=== PATIENT | female | born 1960 | race Caucasian/White ===

== ENCOUNTER 2024-03-31 12:18 | Outpatient (CLI) | payer MEDICARE, OTHER, SELFPAY ==
[2024-04-03 14:54] LABS: Quantiferon Mitogen 7.22 IU/mL; Quantiferon Nil 0.02 IU/mL; Quantiferon Plus TB1 0.02 IU/mL; Quantiferon Plus TB2 0.01 IU/mL; Quantiferon TB Gold NEGATIVE (NEGATIVE)
== END 2024-03-31 12:19 | disposition home or self-care (01) ==
LOC: LAB 12:20
PROVIDERS: PCP Family Medicine; Visit Provider Nurse Practitioner Family
DX: Z01.89 Encounter for other specified special examinations (principal)
CPT/HCPCS: 36415; 86480

== ENCOUNTER 2024-04-30 14:03 | Outpatient (CLI) | payer MEDICARE, OTHER, SELFPAY ==
--- NOTE | 2024-04-30 14:30 | XR_ITS ---
WS: [id number] DEXA (DUAL ENERGY X-RAY ABSORPTIOMETRY) Bone mineral density was performed using a [employer] machine. HISTORY: Z13.820 - Encounter for screening for osteoporosis COMPARISON: None available. Lumbar spine BMD (L1-L4): 1.036 g/cm2 T score: -1.2 Z score: 0.1 Total hip BMD: Left: 0.761 (g/cm2). T score: -2.0 (no units) Z score: -1.0 (no units) Left forearm BMD: 0.708 g/cm2. T score: -1.9 Z score: -0.5 10 year probability of a major osteoporotic fracture is 18.8%. XR/XR DEXA axial skeleton* [id number] IMPRESSION: OSTEOPENIA based upon the WHO classification for females.
== END 2024-04-30 14:04 | disposition home or self-care (01) ==
LOC: RAD 14:08
PROVIDERS: PCP Family Medicine; Visit Provider Family Medicine
DX: Z13.820 Encounter for screening for osteoporosis (principal); M85.80 Other specified disorders of bone density and structure, unspecified site
CPT/HCPCS: 77080

== ENCOUNTER 2024-07-16 12:30 | Outpatient (CLI) | payer MEDICARE, SELFPAY | END 2024-07-16 12:31 | disposition home or self-care (01) | LOC: LAB 07-17 07:28 | PROVIDERS: PCP Family Medicine; Visit Provider Family Medicine | DX: E03.9 Hypothyroidism, unspecified (principal); Z13.820 Encounter for screening for osteoporosis; W19.XXXA Unspecified fall, initial encounter; L40.9 Psoriasis, unspecified; R07.89 Other chest pain | CPT/HCPCS: 80053; 80061; 82306; 84443; 85025 ==

== ENCOUNTER → 2024-07-30 10:17 | Outpatient (BNVA) | payer MEDICARE, OTHER, SELFPAY | PROVIDERS: PCP Family Medicine; Visit Provider Nurse Practitioner Family | DX: L30.4 Erythema intertrigo (principal); L08.89 Other specified local infections of the skin and subcutaneous tissue; L40.0 Psoriasis vulgaris; Z79.899 Other long term (current) drug therapy; L81.4 Other melanin hyperpigmentation; L57.8 Other skin changes due to chronic exposure to nonionizing radiation | CPT/HCPCS: 99213 ==

== ENCOUNTER 2024-08-19 09:20 | Outpatient (CLI) | payer MEDICARE, OTHER, SELFPAY ==
--- NOTE | 2024-08-19 09:40 | MM_ITS ---
WS: [id number] VIEWS: MLO and CC views both breasts. 3D digital tomosynthesis is also included in this exam. No priors. Findings: There are scattered areas of fibroglandular density. No mass, tumor calcification or architectural distortion. MM/MM scr BI tomosynthesis [id number] Impression: BI-RADS: 2 - Benign. FOLLOW-UP: 1 Year Follow-up This mammogram was also analyzed by the Computer [employer].
== END 2024-08-19 09:21 | disposition home or self-care (01) ==
PROVIDERS: PCP Family Medicine; Visit Provider Family Medicine
DX: Z12.31 Encounter for screening mammogram for malignant neoplasm of breast (principal); R92.323 Mammographic fibroglandular density, bilateral breasts
CPT/HCPCS: 77063; 77067; 80053; 80061; 82306; 84443; 85025

== ENCOUNTER 2024-12-01 09:10 | Outpatient (CLI) | payer MEDICARE, OTHER, SELFPAY ==
--- NOTE | 2024-12-01 09:30 | MR_ITS ---
WS: [id number] MRI LEFT SHOULDER HISTORY: M75.100 - Unspecified rotator cuff tear or rupture of uns... COMPARISON: None available. TECHNIQUE: Multiplanar sequences of the shoulder joint are submitted. Mild AC joint arthritis. Narrowing of the AC joint. Very slight downsloping of the acromion. Enthesopathy along the distal undersurface of the acromion with mild impingement upon the supraspinatus tendon. Small amount of fluid in the subacromial and subdeltoid bursa. No os acromion. Abnormal biceps tendon in the bicipital groove. There is increased fluid in the tendon sheath and a split tear within the biceps tendon. Progression of the split tear just proximal to the bicipital groove. Increased T2 signal throughout the tendon from tendinopathy. There is an osteophyte in the bicipital groove contributing to impingement upon the tendon. Mild narrowing of the glenohumeral joint. Subchondral cystic changes in the humeral head with diffuse loss of cartilage. Mild subscapularis and supraspinatus atrophy. Thinning and atrophy of the distal supraspinatus tendon with surface fraying. No full-thickness tear identified. There is an insertion s ite tear measuring about 5 mm. Subscapularis tendon is intact. No infraspinatus tendon tear. Teres minor is intact. There is a focal area of decreased signal involving the distal supraspinatus tendon at the level of the distal clavicular head. This may be a small osteophyte or calcific tendinitis. No labral tear identified. MR/MR shoulder LT wo con* [id number] IMPRESSION: 1. Mild AC joint arthropathy with osteophyte impingement upon the supraspinatu s. 2. Thinning and atrophy of the distal supraspinatus tendon with a small insert ion site tear. There is fraying along both the superior and inferior articular surfaces. 3. Mild subacromial impingement by an enthesopathy on the distal undersurface of the acromion. 4. Focal area of decreased signal abutting the distal supraspinatus tendon at the level of the distal clavicle. Small loose body versus calcific tendinitis. 5. Mild narrowing glenohumeral joint with subchondral cystic changes and diffu se loss of cartilage. 6. Abnormal biceps tendon. Split tear in the bicipital groove with a more comp leia tear just proximal to the bicipital groove along with tenosynovitis. Additi onal biceps tendinopathy.
== END 2024-12-01 09:11 | disposition home or self-care (01) ==
PROVIDERS: PCP Family Medicine; Visit Provider Family Medicine
DX: M19.012 Primary osteoarthritis, left shoulder (principal); M25.712 Osteophyte, left shoulder; M75.42 Impingement syndrome of left shoulder; M24.112 Other articular cartilage disorders, left shoulder; M75.32 Calcific tendinitis of left shoulder; M75.22 Bicipital tendinitis, left shoulder; M75.102 Unspecified rotator cuff tear or rupture of left shoulder, not specified as traumatic
CPT/HCPCS: 73221

== ENCOUNTER → 2025-01-12 07:53 | Outpatient (BNVA) | payer MEDICARE, OTHER, SELFPAY | PROVIDERS: PCP Family Medicine; Visit Provider Orthopaedic Surgery | DX: S46.212A Strain of muscle, fascia and tendon of other parts of biceps, left arm, initial encounter (principal); S43.432A Superior glenoid labrum lesion of left shoulder, initial encounter; W01.0XXA Fall on same level from slipping, tripping and stumbling without subsequent striking against object, initial encounter | CPT/HCPCS: 73030; 99204 ==

== ENCOUNTER 2025-01-14 05:53 | Day surgery (SDC) | payer MEDICARE, OTHER, SELFPAY ==
[2025-01-14] VITALS (8 sets, daily range): BP systolic 108–124; BP diastolic 52–78; PULSE 58–64; RESP 15–20; TEMP 36.4–36.5; O2SAT 96–100; BMI 27.2
--- NOTE | 2025-01-14 06:59 | W.PM.OPSUD ---
Surgery/Procedure H&P Update DATE OF PROCEDURE: January 14, 2025 DATE H&P PERFORMED: 01/12/25 H&P UPDATE INFORMATION: I have reviewed H&P completed within last 30 days, I have examined patient prior to procedure and No changes to prior documentation PREOP DIAGNOSIS: Internal derangement of left shoulder PLANNED PROCEDURE: Operation Date: 01/14/25 07:30 Proposed Procedures p LEFT Shoulder Arthroscopy(Left) - Terrell Trammell MD s LEFT Rotator Cuff Repair - Open(Left) - Terrell Trammell MD s POSSIBLE OPEN Biceps Tenodesis(Left) - Terrell Trammell MD
--- NOTE | 2025-01-14 07:09 | P.ANESASSM_ITS ---
Pre-Anesthetic Assessment Height/Weight: Height 1.7 m Weight 78.925 kg Temp Pulse Resp BP Pulse Ox O2 Del Method 97.7 F 58 L 17 116/73 100 Room Air 01/14/25 06:14 01/14/25 06:14 01/14/25 06:14 01/14/25 06:14 01/14/25 06:14 01/14/25 06:14 Preop Diagnosis: Internal derangement of left shoulder Operation Date: 01/14/25 07:30 Proposed Procedures p LEFT Shoulder Arthroscopy(Left) - Terrell Trammell MD s LEFT Rotator Cuff Repair - Open(Left) - Terrell Trammell MD s POSSIBLE OPEN Biceps Tenodesis(Left) - Terrell Trammell MD Last intake: Intake Last Liquid Date 01/13/25 Last Liquid Time 20:00 Last Solid Date 01/13/25 Last Solid Time 18:00 Social No alcohol and No tobacco Exam alert, oriented x 3, clear to auscultation bilaterally and regular rate & rhythm Airway Submandibular: within normal limits Cervical ROM: within normal limits Mallampati: Class I Dentition: false History/ROS No significant history except as noted GI Gastroesophageal Reflux Disease Neuropsych Bipolar Anesthetic Plan ASA status: 2 Anesthesia: General and Regional (specify below) (Interscalene Nv Blk) Medications/Allergies Home Medications ?Medication ?Instructions ?Recorded ?Confirmed ?Last Taken ?Type pantoprazole 20 mg tablet,delayed 20 mg PO DAILY stoma ch #90 tabs 07/16/24 01/13/25 01/12/25 Rx release (Protonix) Allergies Allergy/AdvReac Type Severity Reaction Status Date / Time amoxicillin Allergy rash Verified 01/13/25 12:09 tramadol Allergy ADR-Nausea Verified 01/13/25 12:09 codine Allergy rash Uncoded 01/13/25 12:09 Latex, Natural Rubber Allergy hives Uncoded 01/13/25 12:09 Current Medications Generic Name Dose Route Start Last Admin Trade Name Freq PRN Reason Stop Dose Admin Sodium Chloride 1,000 mls @ 30 mls/hr 01/14/25 06:00 01/14/25 07:08 Sodium Chloride 0.9% IV 01/15/25 05:59 30 mls/hr .Q24H COLIN Administration PFSH Anesthesia Social History Smoking and tobacco/nicotine status: never used tobacco/nicotine
--- NOTE | 2025-01-14 07:25 | ANES.PROC ---
Anesthesia Procedures Procedure/Date: 01/14/25 Left Side Interscalene Block Nerve Block ^: Nerve Block 1: Time Out Performed: Yes Consent: requested by attending/covering physician, from patient, risks and benefits reviewed and patient agrees to proceed Laterality: Left Nerve block location: interscalene Anesthesia monitors applied: pulse oximetry, EKG, BP cuff and oxygen Nerve block position: semi sitting Anesthetic Used: ropivicaine 0.5% and with decadron (10 mg) Amount of anesthesia used (mL): 20 Ultrasound used to: recognize landmarks, visualize and ID brachial plexus and visualize and ID interscalene groove Nerve Stimulator Used?: Yes Interscalene/Femoral BLK: 4 stimuplex 21 g needle used for position and inplane approach, visualize local anesthetic spread and no vascular puncture identified Injection: neg aspiration of heme Patient Tolerated Procedure: well and no complications Complications: none Additional Comments: Versed 2 mg for block
--- NOTE | 2025-01-14 09:08 | PM.OP ---
Operative Report Date of procedure: January 14, 2025 Surgeon: Terrell Trammell MD Procedure: Preoperative diagnosis: Internal derangement left shoulder with rotator cuff tear and biceps partial tear Postoperative diagnosis: Left shoulder torn rotator cuff, partial tear biceps tendon, degenerative labral tearing anterior and superior labrum, grade II/III chondromalacia of the glenoid, acromial impingement. Procedure: Diagnostic left shoulder arthroscopy with labral debridement, rotator cuff debridement, biceps tenodesis, chondroplasty of the glenoid. Mini open rotator cuff repair with acromioplasty Surgeon: Terrell Trammell MD Party Plan Sales Agent: PREMA Stallings's assistance was necessary for positioning patient, assistance during the procedure, wound closure, dressing placement, sling and abduction pillow placement. Anesthesia: General With preoperative scalene block EBL: Minimal Indications: Glenys is a 64-year-old white female was referred in the orthopedic clinic for evaluation of left shoulder pain problems and difficulties. She has loss of motion and strength in the shoulder. She had positive drop arm test. Positive impingement testing. Subsequent MRI demonstrated tear of the rotator cuff also tearing of the biceps tendon and possible degenerative changes within the labrum. Therefore, after failing all conservative measures she was offered a diagnostic left shoulder arthroscopy with possible mini open rotator cuff repair. All risk benefits treatment alternatives were discussed with her and she is agreeable to this at this time. Procedure: After obtaining her consent patient had preoperative skin block ministered left upper extremity. Patient was then taken to the operating room placed in the op table supine position general anesthetic administered. Once good anesthesia was achieved patient placed over the beachchair position and secured to the table and padded out appropriately. Left shoulder and arm were prepped and draped in usual fashion. After surgical timeout standard posterior portals made #11 blade. Camera cannulas placed within posterior glenohumeral joint line. Anterior working portal was also placed just inferior to the clavicle. 2 of the shoulder demonstrated fraying and degenerative tearing of the labrum all the way from about the 7 o'clock position up to 12 o'clock position. It was found that the biceps tendon was quite redundant and fraying. There is also an area of grade II/III chondromalacia of the central portion of the glenoid. Hypertrophic synovium throughout. Torn rotator cuff identified in the supraspinatus region. Mechanical shaver was then used to debride the labrum over its entire course of the degeneration. Biceps tenodesis was performed with the mechanical shaver removing the biceps from its insertion at the labrum and debriding a portion of the subs of his intra-articularly. Debridement of synovium was also done as well as of the rotator cuff. Chondroplasty of the glenoid was also done with mechanical shaver down to stable cartilage space. At this time arthroscopy is discontinued. Small mini open procedure was proceeded with. Longitudinal incision made just off the anterior lateral corner of the acromion. Sharp dissection taken down down to subcutaneous tissue electrocautery used hemostasis. Deltoid was raised off the anterior acromion with electrocautery. Grade 2 acromial hook was identified. A small microsagittal saw was then used to do an acromioplasty at this time and bone was removed with a rongeur's. Exploration of the subacromial space found a small tear within the supraspinatus tendon. Area was freshened with #15 blade. 2 juggernaut 2.9 mm suture anchors were placed equal distance about the tear. Each of these were double arm. Repair of the rotator cuff was done with horizontal mattress sutures. The most anterior sutures were also used to capture the biceps tendon and anchor it in the bicipital groove. Anterior portal was also closed with a [id number] suture from the suture anchor. Once adequate repair had been done shoulder split range of motion found to be stable. Deep structures i.e. deltoid was reapproximated 0 Vicryl [id number] sutures. Subcutaneous tissue reapproximated 0 Vicryl interrupted sutures and skin was closed skin edvin. Wounds are cleaned and dry dressed with Xeroform gauze, sterile gauze dressing ABDs he is tape. Patient placed in abduction pillow sling awakened and transferred to cover room stable condition
--- NOTE | 2025-01-14 09:52 | ANE.PACU2 ---
Inpatient post-anesthesia follow up: Airway intact: Yes Vital signs: Temperature 97.6 F Pulse Rate 63 Respiratory Rate 17 Blood Pressure 115/52 Pulse Oximetry 99 Oxygen Delivery Me thod Room Air Oxygen Flow Rate Fraction of Inspir ed Oxygen Hydration adequate: Yes Nausea and vomiting: No Pain level: controlled Mental status: Baseline
[2025-01-14] MEDS: ondansetron 2 mg/ML SDV 2 mL 4 MG IVP (10:10)
== END 2025-01-14 10:41 | disposition home or self-care (01) ==
PROVIDERS: PCP Family Medicine; Visit Provider Orthopaedic Surgery
PROC: (CPT 29805; principal; 2025-01-14 07:30)
PROC: (CPT 23412; 2025-01-14 07:30)
PROC: (CPT 23430; 2025-01-14 07:30)
PROC: (CPT 23130; 2025-01-14 07:30)
DX: M24.812 Other specific joint derangements of left shoulder, not elsewhere classified (principal); M75.102 Unspecified rotator cuff tear or rupture of left shoulder, not specified as traumatic; S46.212A Strain of muscle, fascia and tendon of other parts of biceps, left arm, initial encounter; S43.432A Superior glenoid labrum lesion of left shoulder, initial encounter; X58.XXXA Exposure to other specified factors, initial encounter; M94.212 Chondromalacia, left shoulder; M75.42 Impingement syndrome of left shoulder; K21.9 Gastro-esophageal reflux disease without esophagitis; F31.9 Bipolar disorder, unspecified
CPT/HCPCS: 23412; 23130; C1713; J1100; J2250; J2405; J2704; J2795; J3010; J3490; J7030; J9999

== ENCOUNTER → 2025-01-26 11:27 | Outpatient (BNVA) | payer MEDICARE, OTHER, SELFPAY | PROVIDERS: PCP Family Medicine; Visit Provider Orthopaedic Surgery | DX: Z98.890 Other specified postprocedural states (principal) | CPT/HCPCS: 99024 ==

== ENCOUNTER → 2025-02-05 10:05 | Outpatient (BNVA) | payer MEDICARE, OTHER, SELFPAY | PROVIDERS: PCP Family Medicine; Visit Provider Nurse Practitioner Family | DX: L40.0 Psoriasis vulgaris (principal); Z79.899 Other long term (current) drug therapy; L81.4 Other melanin hyperpigmentation; L57.8 Other skin changes due to chronic exposure to nonionizing radiation; D22.72 Melanocytic nevi of left lower limb, including hip | CPT/HCPCS: 99213 ==

== ENCOUNTER → 2025-02-22 10:42 | Outpatient (BNVA) | payer MEDICARE, OTHER, SELFPAY | PROVIDERS: PCP Family Medicine; Visit Provider Orthopaedic Surgery | DX: Z98.890 Other specified postprocedural states (principal) | CPT/HCPCS: 99024 ==

== ENCOUNTER 2025-03-09 09:31 | Outpatient (RCR) | payer MEDICARE, OTHER, SELFPAY | END 2025-04-04 23:59 | disposition home or self-care (01) | LOC: SPT 09:31 | PROVIDERS: PCP Family Medicine; Visit Provider Orthopaedic Surgery | DX: Z98.890 Other specified postprocedural states (principal) | CPT/HCPCS: 97110; 97161 ==

== ENCOUNTER → 2025-03-22 11:36 | Outpatient (BNVA) | payer MEDICARE, OTHER, SELFPAY | PROVIDERS: PCP Family Medicine; Visit Provider Orthopaedic Surgery | DX: Z98.890 Other specified postprocedural states (principal) | CPT/HCPCS: 99024 ==

== ENCOUNTER 2025-04-05 05:00 | Outpatient (RCR) | payer MEDICARE, OTHER, SELFPAY | END 2025-05-05 23:59 | disposition home or self-care (01) | LOC: SPT 05:00 | PROVIDERS: PCP Family Medicine; Visit Provider Orthopaedic Surgery | DX: Z98.890 Other specified postprocedural states (principal) | CPT/HCPCS: 97110; 97530 ==

== ENCOUNTER → 2025-04-19 10:40 | Outpatient (BNVA) | payer MEDICARE, OTHER, SELFPAY | PROVIDERS: PCP Family Medicine; Visit Provider Orthopaedic Surgery | DX: Z98.890 Other specified postprocedural states (principal) | CPT/HCPCS: 99024 ==